=== PATIENT | female | born 1930 | race Caucasian/White ===

== ENCOUNTER 2017-08-23 12:40 | Inpatient (IN) | payer MEDICARE, BC ==
[2017-08-23] MEDS: SOD CHLORIDE 0.9% 1,000 ML IV ×2 (15:13→20:10)
[2017-08-23] MEDS: CEFEPIME 1GM/50 ML (PMX) 50 ML IVPB (15:13)
[2017-08-23 15:35] LABS: ADD MAN DIFF? NO
[2017-08-23 15:38] LABS: WHITE BLOOD COUNT 13.2 10^3/ul (4.8-10.8)
[2017-08-23 15:38] LABS: BASOPHILS % 0.2 % (0.0-2.0); HEMATOCRIT 27.3 % (37.0-47.0); HEMOGLOBIN 9.4 g/dl (12.0-16.0); LYMPHOCYTES # 2.5 10^3/ul (0.8-2.9); LYMPHOCYTES % 19.1 % (15.0-51.0); MEAN CORPUSCULAR HEMOGLOBIN 32.9 pg (29.0-33.0); MEAN CORPUSCULAR HGB CONC 34.4 g/dl (32.0-37.0); MEAN CORPUSCULAR VOLUME 95.5 fl (82.0-101.0); MEAN PLATELET VOLUME 10.7 fl (7.4-10.4); MONOCYTE # 0.2 10^3/ul (0.3-0.9); MONOCYTES % 1.2 % (0.0-11.0); NEUTROPHIL # 10.4 10^3/ul (1.6-7.5); PLATELET COUNT 229 10^3/UL (140-415); RED BLOOD COUNT 2.86 10^6/ul (4.20-5.40); RED CELL DISTRIBUTION WIDTH 13.9 % (11.5-14.5)
[2017-08-23 16:05] LABS: ALANINE AMINOTRANSFERASE 33 IU/L (13-69); ALBUMIN 3.5 g/dl (3.3-4.9); ALBUMIN/GLOBULIN RATIO 1.02; ALKALINE PHOSPHATASE 85 IU/L (42-121); ANION GAP 13 (8-16); ASPARTATE AMINO TRANSFERASE 43 IU/L (15-46); BILIRUBIN,INDIRECT 0.1 mg/dl (0-1.1); BILIRUBIN,TOTAL 0.1 mg/dl (0.2-1.3); BLOOD UREA NITROGEN 25 mg/dl (7-20); CALCIUM 9.1 mg/dl (8.4-10.2); CARBON DIOXIDE 25 mmol/L (21-31); CHLORIDE 98 mmol/L (97-110); CREATININE 1.08 mg/dl (0.44-1.00); GLUCOSE 151 mg/dl (70-220); POTASSIUM 4.2 mmol/L (3.5-5.1); SODIUM 132 mmol/L (135-144); TOTAL PROTEIN 6.9 g/dl (6.1-8.1)
[2017-08-23 16:09] LABS: LACTIC ACID 3.2 mmol/L (0.5-2.0)
[2017-08-23 16:12] LABS: B-TYPE NATRIURETIC PEPTIDE 7040 PG/ML (0-450)
[2017-08-23] MEDS: VANCOMYCIN 1 GM (PMX) 250 ML IVPB (16:33)
[2017-08-23 17:59] LABS: LACTIC ACID 2.6 mmol/L (0.5-2.0)
[2017-08-23] MEDS: SODIUM CHLORIDE 0.9% 1L BAG IV* (19:35)
[2017-08-23 20:06] LABS: LACTIC ACID 1.6 mmol/L (0.5-2.0)
[2017-08-23] MEDS ORDERED: ACETAMINOPHEN 325 MG TAB PO ×2 (20:30→21:00)
[2017-08-23] MEDS ORDERED: VANCOMYCIN IV PER PHARMACY XX (21:00)
[2017-08-23 21:01] LABS: PT RATIO 7.8
[2017-08-23 21:04] LABS: INR > 6.00; PARTIAL THROMBOPLASTIN TIME 168.6 Sec (25.0-35.0); PROTIME > 100.0 Sec (11.9-14.9)
[2017-08-23 21:41] LABS: ADD UMIC NO; UR ASCORBIC ACID NEGATIVE (NEGATIVE); UR BILIRUBIN (Dip) NEGATIVE (NEGATIVE); UR BLOOD (Dip) NEGATIVE (NEGATIVE); UR CLARITY CLEAR (CLEAR); UR COLOR STRAW (YELLOW); UR GLUCOSE (Dip) NEGATIVE (NEGATIVE); UR KETONES (Dip) NEGATIVE (NEGATIVE); UR LEUKOCYTE ESTERASE (Dip) NEGATIVE Leu/ul (NEGATIVE); UR NITRITE (Dip) NEGATIVE (NEGATIVE); UR SPECIFIC GRAVITY (Dip) 1.005 (1.003-1.030); UR TOTAL PROTEIN (Dip) NEGATIVE (NEGATIVE); UR UROBILINOGEN (Dip) NEGATIVE (NEGATIVE)
[2017-08-23] MEDS: morphine 2 MG INJ IV (21:41)
[2017-08-24] MEDS: PHYTONADIONE 10 MG/ML INJ SC (01:00)
[2017-08-24] MEDS: morphine 2 MG INJ IV (01:37)
[2017-08-24] MEDS: ONDANSETRON 4 MG INJ IV ×2 (02:56→10:19)
[2017-08-24] MEDS: morphine 4 MG/ML VIAL IV ×3 (02:56→21:27)
[2017-08-24 06:38] LABS: ADD MAN DIFF? NO
[2017-08-24 06:41] LABS: WHITE BLOOD COUNT 11.3 10^3/ul (4.8-10.8)
[2017-08-24 06:41] LABS: BASOPHILS % 0.4 % (0.0-2.0); HEMATOCRIT 26.9 % (37.0-47.0); HEMOGLOBIN 8.9 g/dl (12.0-16.0); LYMPHOCYTES % 26.5 % (15.0-51.0); MEAN CORPUSCULAR HEMOGLOBIN 32.2 pg (29.0-33.0); MEAN CORPUSCULAR HGB CONC 33.1 g/dl (32.0-37.0); MEAN CORPUSCULAR VOLUME 97.5 fl (82.0-101.0); MEAN PLATELET VOLUME 10.5 fl (7.4-10.4); MONOCYTE # 0.7 10^3/ul (0.3-0.9); MONOCYTES % 6.3 % (0.0-11.0); NEUTROPHIL # 7.5 10^3/ul (1.6-7.5); NEUTROPHILS % 66.4 % (39.0-77.0); PLATELET COUNT 233 10^3/UL (140-415); RED BLOOD COUNT 2.76 10^6/ul (4.20-5.40); RED CELL DISTRIBUTION WIDTH 13.9 % (11.5-14.5)
[2017-08-24 07:10] LABS: LACTIC ACID 0.8 mmol/L (0.5-2.0)
[2017-08-24 07:13] LABS: ALANINE AMINOTRANSFERASE 43 IU/L (13-69); ALBUMIN/GLOBULIN RATIO 1.07; ALKALINE PHOSPHATASE 72 IU/L (42-121); ANION GAP 10 (8-16); ASPARTATE AMINO TRANSFERASE 42 IU/L (15-46); BILIRUBIN,INDIRECT 0.3 mg/dl (0-1.1); BILIRUBIN,TOTAL 0.3 mg/dl (0.2-1.3); BLOOD UREA NITROGEN 21 mg/dl (7-20); CALCIUM 8.2 mg/dl (8.4-10.2); CARBON DIOXIDE 25 mmol/L (21-31); CHLORIDE 107 mmol/L (97-110); CREATININE 0.96 mg/dl (0.44-1.00); GLUCOSE 89 mg/dl (70-220); MAGNESIUM 1.8 mg/dl (1.7-2.5); POTASSIUM 4.3 mmol/L (3.5-5.1); SODIUM 138 mmol/L (135-144); TOTAL PROTEIN 5.8 g/dl (6.1-8.1)
[2017-08-24 07:19] LABS: B-TYPE NATRIURETIC PEPTIDE 7390 PG/ML (0-450)
[2017-08-24 07:44] LABS: IRON 105 ug/dl (35-150)
[2017-08-24 07:47] LABS: % IRON SATURATION 43 % SAT (22-52)
[2017-08-24 08:01] LABS: TOTAL IRON BINDING CAPACITY 247 ug/dl (241-421)
[2017-08-24] MEDS ORDERED: HYDROmorphONE 0.5 MG/0.5 ML SYG IV (08:30)
[2017-08-24 09:46] LABS: INR > 6.00; PROTIME > 100.0 Sec (11.9-14.9); PT RATIO 7.8
[2017-08-24] MEDS: LISINOPRIL 5 MG TAB PO (10:18)
[2017-08-24] MEDS: SERTRALINE 100 MG TAB PO (10:18)
[2017-08-24] MEDS: FLUCONAZOLE 100 MG TAB PO (10:18)
[2017-08-24] MEDS: LEVOTHYROXINE 112 MCG TAB PO (10:19)
[2017-08-24] MEDS: FUROSEMIDE 20 MG INJ IV (10:19)
[2017-08-24] MEDS: PHYTONADIONE 10 MG in DEXTROSE 5% 50 ML IVPB (12:02)
[2017-08-24] MEDS: MAGNESIUM SULFATE 2 GM/50 ML 50 ML IVPB (13:05)
[2017-08-24] MEDS: L ACIDOPHIL/B LACTIS/B LONGUM CAPSULE PO ×2 (13:06→20:41)
[2017-08-24] MEDS ORDERED: CEFEPIME 1GM/50 ML (PMX) 50 ML IVPB (15:00)
[2017-08-24] MEDS ORDERED: VANCOMYCIN 750 MG in DEXTROSE 5% 150 ML IVPB (17:00)
[2017-08-24 17:33] LABS: OCCULT BLOOD STOOL NEGATIVE (NEGATIVE)
[2017-08-25 06:47] LABS: INR 1.25; PROTIME 15.9 Sec (11.9-14.9); PT RATIO 1.2
[2017-08-25 06:48] LABS: PARTIAL THROMBOPLASTIN TIME 36.5 Sec (25.0-35.0)
[2017-08-25 07:21] LABS: C-REACTIVE PROTEIN 1.4 mg/dl (0.0-0.9)
[2017-08-25] MEDS: FUROSEMIDE 20 MG INJ IV (09:23)
[2017-08-25] MEDS: LEVOTHYROXINE 112 MCG TAB PO (09:24)
[2017-08-25] MEDS: L ACIDOPHIL/B LACTIS/B LONGUM CAPSULE PO ×2 (09:24→20:10)
[2017-08-25] MEDS: LISINOPRIL 5 MG TAB PO (09:24)
[2017-08-25] MEDS: FLUCONAZOLE 100 MG TAB PO (09:24)
[2017-08-25] MEDS: SERTRALINE 100 MG TAB PO (09:24)
[2017-08-25 10:39] LABS: ADD MAN DIFF? NO
[2017-08-25 10:45] LABS: BASOPHIL # 0.1 10^3/ul (0.0-0.1); BASOPHILS % 0.7 % (0.0-2.0); EOSINOPHILS % 0.2 % (0.0-7.0); HEMATOCRIT 26.5 % (37.0-47.0); HEMOGLOBIN 9.1 g/dl (12.0-16.0); LYMPHOCYTES # 3.4 10^3/ul (0.8-2.9); LYMPHOCYTES % 27.1 % (15.0-51.0); MEAN CORPUSCULAR HEMOGLOBIN 32.7 pg (29.0-33.0); MEAN CORPUSCULAR HGB CONC 34.3 g/dl (32.0-37.0); MEAN CORPUSCULAR VOLUME 95.3 fl (82.0-101.0); MEAN PLATELET VOLUME 10.2 fl (7.4-10.4); MONOCYTE # 0.8 10^3/ul (0.3-0.9); MONOCYTES % 6.4 % (0.0-11.0); NEUTROPHIL # 8.3 10^3/ul (1.6-7.5); NEUTROPHILS % 65.2 % (39.0-77.0); PLATELET COUNT 210 10^3/UL (140-415); RED BLOOD COUNT 2.78 10^6/ul (4.20-5.40); RED CELL DISTRIBUTION WIDTH 14.1 % (11.5-14.5)
[2017-08-25 10:45] LABS: WHITE BLOOD COUNT 12.7 10^3/ul (4.8-10.8)
[2017-08-25 11:11] LABS: ALANINE AMINOTRANSFERASE 37 IU/L (13-69); ALBUMIN 3.2 g/dl (3.3-4.9); ALBUMIN/GLOBULIN RATIO 1.06; ALKALINE PHOSPHATASE 77 IU/L (42-121); ANION GAP 13 (8-16); ASPARTATE AMINO TRANSFERASE 38 IU/L (15-46); BILIRUBIN,INDIRECT 0.6 mg/dl (0-1.1); BILIRUBIN,TOTAL 0.6 mg/dl (0.2-1.3); BLOOD UREA NITROGEN 22 mg/dl (7-20); CALCIUM 8.4 mg/dl (8.4-10.2); CARBON DIOXIDE 23 mmol/L (21-31); CHLORIDE 103 mmol/L (97-110); CREATININE 0.99 mg/dl (0.44-1.00); GLUCOSE 93 mg/dl (70-220); MAGNESIUM 1.8 mg/dl (1.7-2.5); SODIUM 135 mmol/L (135-144); TOTAL PROTEIN 6.2 g/dl (6.1-8.1)
[2017-08-25 12:01] LABS: ERYTHROCYTE SEDIMENTATION RATE 62 mm/Hr (0-30)
[2017-08-25] MEDS ORDERED: BETHANECHOL 25 MG TAB PO (16:30)
[2017-08-25] MEDS: WARFARIN 2 MG TAB PO (17:53)
[2017-08-25] MEDS: HYDROCODONE/APAP (7.5/325) TAB PO (20:14)
[2017-08-26] MEDS: TEMAZEPAM 15 MG CAP PO (01:36)
[2017-08-26] MEDS: FUROSEMIDE 20 MG INJ IV (08:40)
[2017-08-26] MEDS: SERTRALINE 100 MG TAB PO (08:41)
[2017-08-26] MEDS: L ACIDOPHIL/B LACTIS/B LONGUM CAPSULE PO ×3 (08:41→20:44)
[2017-08-26] MEDS: FLUCONAZOLE 100 MG TAB PO (08:41)
[2017-08-26] MEDS: LISINOPRIL 5 MG TAB PO (08:41)
[2017-08-26] MEDS: LEVOTHYROXINE 112 MCG TAB PO (08:41)
[2017-08-26] MEDS: WARFARIN 2 MG TAB PO (17:45)
[2017-08-26] MEDS: HYDROCODONE/APAP (7.5/325) TAB PO (20:45)
[2017-08-26 22:37] LABS: ADD MAN DIFF? NO; BASOPHIL # 0.1 10^3/ul (0.0-0.1); BASOPHILS % 0.5 % (0.0-2.0); EOSINOPHILS # 0.1 10^3/ul (0.0-0.5); EOSINOPHILS % 0.8 % (0.0-7.0); HEMATOCRIT 27.9 % (37.0-47.0); HEMOGLOBIN 9.7 g/dl (12.0-16.0); LYMPHOCYTES % 31.7 % (15.0-51.0); MEAN CORPUSCULAR HEMOGLOBIN 33.4 pg (29.0-33.0); MEAN CORPUSCULAR HGB CONC 34.8 g/dl (32.0-37.0); MEAN CORPUSCULAR VOLUME 96.2 fl (82.0-101.0); MEAN PLATELET VOLUME 10.1 fl (7.4-10.4); MONOCYTES % 6.6 % (0.0-11.0); NEUTROPHIL # 9.4 10^3/ul (1.6-7.5); NEUTROPHILS % 59.9 % (39.0-77.0); PLATELET COUNT 219 10^3/UL (140-415); RED CELL DISTRIBUTION WIDTH 13.9 % (11.5-14.5)
[2017-08-26 22:37] LABS: WHITE BLOOD COUNT 15.7 10^3/ul (4.8-10.8)
[2017-08-26 23:05] LABS: INR 1.23; PROTIME 15.7 Sec (11.9-14.9); PT RATIO 1.2
[2017-08-27 06:33] LABS: ADD MAN DIFF? NO
[2017-08-27 06:35] LABS: BASOPHIL # 0.1 10^3/ul (0.0-0.1); BASOPHILS % 0.7 % (0.0-2.0); EOSINOPHILS # 0.2 10^3/ul (0.0-0.5); EOSINOPHILS % 1.2 % (0.0-7.0); HEMATOCRIT 25.1 % (37.0-47.0); HEMOGLOBIN 8.6 g/dl (12.0-16.0); LYMPHOCYTES # 3.3 10^3/ul (0.8-2.9); LYMPHOCYTES % 26.7 % (15.0-51.0); MEAN CORPUSCULAR HEMOGLOBIN 32.6 pg (29.0-33.0); MEAN CORPUSCULAR HGB CONC 34.3 g/dl (32.0-37.0); MEAN CORPUSCULAR VOLUME 95.1 fl (82.0-101.0); MEAN PLATELET VOLUME 10.5 fl (7.4-10.4); MONOCYTE # 0.8 10^3/ul (0.3-0.9); MONOCYTES % 6.9 % (0.0-11.0); NEUTROPHIL # 7.8 10^3/ul (1.6-7.5); PLATELET COUNT 196 10^3/UL (140-415); RED BLOOD COUNT 2.64 10^6/ul (4.20-5.40)
[2017-08-27 06:35] LABS: WHITE BLOOD COUNT 12.2 10^3/ul (4.8-10.8)
[2017-08-27 07:01] LABS: INR 1.28; PROTIME 16.2 Sec (11.9-14.9); PT RATIO 1.3
[2017-08-27] MEDS: LISINOPRIL 5 MG TAB PO (08:44)
[2017-08-27] MEDS: FUROSEMIDE 20 MG INJ IV (08:45)
[2017-08-27] MEDS: LEVOTHYROXINE 112 MCG TAB PO (08:45)
[2017-08-27] MEDS: L ACIDOPHIL/B LACTIS/B LONGUM CAPSULE PO (08:45)
[2017-08-27] MEDS: SERTRALINE 50 MG TAB PO (08:45)
[2017-08-27] MEDS: FLUCONAZOLE 100 MG TAB PO (08:45)
== END 2017-08-27 12:05 | disposition home or self-care (01) | DRG 291 ==
LOC: E/R 12:40 → PP2 20:11
DX: I13.0 Hypertensive heart and chronic kidney disease with heart failure and stage 1 through stage 4 chronic kidney disease, or unspecified chronic kidney disease (principal); I50.33 Acute on chronic diastolic (congestive) heart failure; E87.2 Acidosis; D68.8 Other specified coagulation defects; M32.9 Systemic lupus erythematosus, unspecified; I05.2 Rheumatic mitral stenosis with insufficiency; I48.0 Paroxysmal atrial fibrillation; B37.9 Candidiasis, unspecified; F32.9 Major depressive disorder, single episode, unspecified; E03.9 Hypothyroidism, unspecified; I35.0 Nonrheumatic aortic (valve) stenosis; D72.829 Elevated white blood cell count, unspecified; D64.9 Anemia, unspecified; F39 Unspecified mood [affective] disorder; F17.210 Nicotine dependence, cigarettes, uncomplicated; N18.9 Chronic kidney disease, unspecified; R60.0 Localized edema; R33.9 Retention of urine, unspecified; R19.7 Diarrhea, unspecified; Z87.01 Personal history of pneumonia (recurrent); Z87.440 Personal history of urinary (tract) infections; Z95.0 Presence of cardiac pacemaker; Z95.828 Presence of other vascular implants and grafts; Z79.01 Long term (current) use of anticoagulants
CPT/HCPCS: 71045; 73700; 80053; 81003; 82270; 82607; 83540; 83605; 83735; 83880; 84443; 85025; 85610; 85651; 85730; 86140; 87040; 87086; 87400; 93005; 93306; 93970; 96374; 96375; 99285-25; J1940

== ENCOUNTER 2018-10-09 09:05 | Inpatient (IN) | payer MEDICARE, BC ==
[2018-10-09] MEDS: ONDANSETRON 4 MG INJ IV (10:07)
[2018-10-09] MEDS: SOD CHLORIDE 0.9% 1,000 ML IV (10:07)
[2018-10-09 10:15] LABS: ADD MAN DIFF? NO
[2018-10-09 10:17] LABS: HEMATOCRIT 37.8 % (37.0-47.0); RED BLOOD COUNT 3.76 10^6/ul (4.20-5.40)
[2018-10-09 10:18] LABS: BASOPHILS % 0.2 % (0.0-2.0); LYMPHOCYTES # 3.2 10^3/ul (0.8-2.9); LYMPHOCYTES % 21.5 % (15.0-51.0); MEAN CORPUSCULAR HEMOGLOBIN 31.9 pg (29.0-33.0); MEAN CORPUSCULAR HGB CONC 31.7 g/dl (32.0-37.0); MEAN CORPUSCULAR VOLUME 100.5 fl (82.0-101.0); MEAN PLATELET VOLUME 11.3 fl (7.4-10.4); MONOCYTE # 0.4 10^3/ul (0.3-0.9); MONOCYTES % 2.6 % (0.0-11.0); NEUTROPHIL # 11.3 10^3/ul (1.6-7.5); NEUTROPHILS % 75.2 % (39.0-77.0); PLATELET COUNT 182 10^3/UL (140-415); RED CELL DISTRIBUTION WIDTH 14.1 % (11.5-14.5)
[2018-10-09] MEDS: ACETAMINOPHEN 325 MG TAB PO ×3 (10:20→20:39)
[2018-10-09 10:35] LABS: ALANINE AMINOTRANSFERASE 25 IU/L (13-69); ALBUMIN 3.9 g/dl (3.3-4.9); ALBUMIN/GLOBULIN RATIO 1.14; ALKALINE PHOSPHATASE 110 IU/L (42-121); ANION GAP 7 (5-13); ASPARTATE AMINO TRANSFERASE 44 IU/L (15-46); BILIRUBIN,INDIRECT 0.8 mg/dl (0-1.1); BILIRUBIN,TOTAL 0.8 mg/dl (0.2-1.3); BLOOD UREA NITROGEN 19 mg/dl (7-20); CALCIUM 9.2 mg/dl (8.4-10.2); CARBON DIOXIDE 27 mmol/L (21-31); CHLORIDE 105 mmol/L (97-110); CREATININE 0.85 mg/dl (0.44-1.00); GLUCOSE 115 mg/dl (70-220); LIPASE 22 U/L (23-300); POTASSIUM 4.5 mmol/L (3.5-5.1); SODIUM 139 mmol/L (135-144); TOTAL PROTEIN 7.3 g/dl (6.1-8.1)
[2018-10-09 10:47] LABS: TROPONIN-I 0.019 ng/ml (0.000-0.120)
[2018-10-09] MEDS: FUROSEMIDE 40 MG INJ IV (11:00)
[2018-10-09 11:10] LABS: B-TYPE NATRIURETIC PEPTIDE 5720 PG/ML (0-450)
[2018-10-09 13:44] LABS: INR 1.95; PROTIME 22.3 Sec (11.9-14.9); PT RATIO 1.7
[2018-10-09 13:45] LABS: PARTIAL THROMBOPLASTIN TIME 51.7 Sec (23.0-35.0)
[2018-10-09] MEDS: PIPER-TAZO 3.375 GM IV (PMX) 100 ML IVPB ×3 (14:02→22:07)
[2018-10-09 17:08] LABS: CREATINE KINASE 36 IU/L (23-200)
[2018-10-09 17:20] LABS: CK INDEX 1.8; CK-MB 0.65 ng/ml (0.0-2.4); TROPONIN-I 0.022 ng/ml (0.000-0.120)
[2018-10-09] MEDS: NICOTINE (14 MG/24 HR) PATCH TRANSDERM (17:30)
[2018-10-09] MEDS ORDERED: FUROSEMIDE 20 MG INJ IV (18:00)
[2018-10-09] MEDS: WARFARIN 2 MG TAB PO (18:30)
[2018-10-09] MEDS: HYDROCODONE/APAP (5/325) TAB PO (18:31)
[2018-10-09] MEDS: FUROSEMIDE 20 MG INJ IV (19:06)
[2018-10-09] MEDS: ATORVASTATIN 10 MG TAB PO (20:40)
[2018-10-10 01:44] LABS: ADD UMIC YES; UR ASCORBIC ACID NEGATIVE (NEGATIVE); UR BILIRUBIN (Dip) NEGATIVE (NEGATIVE); UR BLOOD (Dip) 1+ mg/dL (NEGATIVE); UR CLARITY CLEAR (CLEAR); UR COLOR YELLOW (YELLOW); UR GLUCOSE (Dip) NEGATIVE (NEGATIVE); UR KETONES (Dip) NEGATIVE (NEGATIVE); UR LEUKOCYTE ESTERASE (Dip) NEGATIVE Leu/ul (NEGATIVE); UR NITRITE (Dip) NEGATIVE (NEGATIVE); UR RBC 8 /HPF (0-5); UR TOTAL PROTEIN (Dip) NEGATIVE (NEGATIVE); UR UROBILINOGEN (Dip) NEGATIVE (NEGATIVE); UR WBC 1 /HPF (0-5)
[2018-10-10] MEDS: FUROSEMIDE 20 MG INJ IV (05:21)
[2018-10-10] MEDS: PIPER-TAZO 3.375 GM IV (PMX) 100 ML IVPB ×3 (05:21→21:21)
[2018-10-10] MEDS: LEVOTHYROXINE 112 MCG TAB PO (06:44)
[2018-10-10 06:47] LABS: ADD MAN DIFF? NO
[2018-10-10 06:50] LABS: BASOPHILS % 0.4 % (0.0-2.0); EOSINOPHILS # 0.2 10^3/ul (0.0-0.5); EOSINOPHILS % 2.1 % (0.0-7.0); HEMATOCRIT 35.3 % (37.0-47.0); HEMOGLOBIN 11.2 g/dl (12.0-16.0); LYMPHOCYTES # 2.6 10^3/ul (0.8-2.9); LYMPHOCYTES % 26.7 % (15.0-51.0); MEAN CORPUSCULAR HEMOGLOBIN 32.4 pg (29.0-33.0); MEAN CORPUSCULAR HGB CONC 31.7 g/dl (32.0-37.0); MEAN PLATELET VOLUME 11.1 fl (7.4-10.4); MONOCYTE # 0.4 10^3/ul (0.3-0.9); MONOCYTES % 3.8 % (0.0-11.0); NEUTROPHIL # 6.5 10^3/ul (1.6-7.5); NEUTROPHILS % 66.5 % (39.0-77.0); PLATELET COUNT 162 10^3/UL (140-415); RED BLOOD COUNT 3.46 10^6/ul (4.20-5.40); RED CELL DISTRIBUTION WIDTH 14.4 % (11.5-14.5)
[2018-10-10 06:50] LABS: WHITE BLOOD COUNT 9.8 10^3/ul (4.8-10.8)
[2018-10-10 07:24] LABS: ALANINE AMINOTRANSFERASE 53 IU/L (13-69); ALBUMIN 3.3 g/dl (3.3-4.9); ALBUMIN/GLOBULIN RATIO 1.03; ALKALINE PHOSPHATASE 99 IU/L (42-121); ANION GAP 8 (5-13); ASPARTATE AMINO TRANSFERASE 56 IU/L (15-46); B-TYPE NATRIURETIC PEPTIDE 7430 PG/ML (0-450); BILIRUBIN,INDIRECT 0.7 mg/dl (0-1.1); BILIRUBIN,TOTAL 0.7 mg/dl (0.2-1.3); BLOOD UREA NITROGEN 21 mg/dl (7-20); CALCIUM 8.1 mg/dl (8.4-10.2); CARBON DIOXIDE 25 mmol/L (21-31); CHLORIDE 104 mmol/L (97-110); GLUCOSE 91 mg/dl (70-220); MAGNESIUM 1.8 mg/dl (1.7-2.5); POTASSIUM 3.8 mmol/L (3.5-5.1); SODIUM 137 mmol/L (135-144); TOTAL PROTEIN 6.5 g/dl (6.1-8.1)
[2018-10-10] MEDS: NICOTINE (14 MG/24 HR) PATCH TRANSDERM (08:38)
[2018-10-10] MEDS: SERTRALINE 100 MG TAB PO (08:38)
[2018-10-10] MEDS: MAGNESIUM SULFATE 2 GM/50 ML 50 ML IVPB (08:39)
[2018-10-10] MEDS: LISINOPRIL 5 MG TAB PO (08:40)
[2018-10-10] MEDS: POLYETHYLENE GLYCOL 17 GM PACKET PO ×2 (08:44→21:22)
[2018-10-10] MEDS: ACETAMINOPHEN 325 MG TAB PO (14:22)
[2018-10-10] MEDS: WARFARIN 2 MG TAB PO (17:07)
[2018-10-10] MEDS: ATORVASTATIN 10 MG TAB PO (21:00)
[2018-10-10] MEDS: ZOLPIDEM 5 MG TAB PO (21:30)
[2018-10-11] MEDS: HYDROCODONE/APAP (5/325) TAB PO (02:34)
[2018-10-11] MEDS: PIPER-TAZO 3.375 GM IV (PMX) 100 ML IVPB ×3 (06:13→20:35)
[2018-10-11] MEDS: LEVOTHYROXINE 112 MCG TAB PO (06:14)
[2018-10-11 06:50] LABS: HEMATOCRIT 36.9 % (37.0-47.0); HEMOGLOBIN 11.8 g/dl (12.0-16.0); MEAN CORPUSCULAR HEMOGLOBIN 32.6 pg (29.0-33.0); MEAN CORPUSCULAR VOLUME 101.9 fl (82.0-101.0); MEAN PLATELET VOLUME 10.9 fl (7.4-10.4); PLATELET COUNT 179 10^3/UL (140-415); RED BLOOD COUNT 3.62 10^6/ul (4.20-5.40)
[2018-10-11 06:51] LABS: ADD MAN DIFF? YES; POSITIVE DIFF @See below
[2018-10-11 07:05] LABS: ANION GAP 6 (5-13); BLOOD UREA NITROGEN 18 mg/dl (7-20); CALCIUM 8.9 mg/dl (8.4-10.2); CARBON DIOXIDE 29 mmol/L (21-31); CHLORIDE 106 mmol/L (97-110); CREATININE 0.82 mg/dl (0.44-1.00); GLUCOSE 92 mg/dl (70-220); POTASSIUM 3.7 mmol/L (3.5-5.1); SODIUM 141 mmol/L (135-144)
[2018-10-11 07:11] LABS: INR 2.11; PROTIME 23.7 Sec (11.9-14.9); PT RATIO 1.9
[2018-10-11 07:15] LABS: B-TYPE NATRIURETIC PEPTIDE 4540 PG/ML (0-450)
[2018-10-11 07:38] LABS: ANISOCYTOSIS 1+ (0-0); BAND NEUTROPHILS #M 0.8 10^3/ul (0.0-0.6); BAND NEUTROPHILS % (M) 9 % (0-4); BASOPHILS % (M) 1 % (0-2); EOSINOPHILS % (M) 4 % (0-7); GIANT THROMBO% (M) 1 % (0-0); LYMPHOCYTES #M 2.2 10^3/ul (0.8-2.9); LYMPHOCYTES % (M) 25 % (15-51); MONOCYTE #M 0.9 10^3/ul (0.3-0.9); MONOCYTES % (M) 10 % (0-11); MYELOCYTES % (M) 1 % (0-0); OVALOCYTES 1+ (0-0); PLATELET ESTIMATE NORMAL; REACTIVE LYMPHOCYTES #M 0.4 10^3/ul (0.0-0.0); REACTIVE LYMPHOCYTES% (M) 5 % (0-0); SEG NEUT #M 4.1 10^3/ul (1.6-7.5); SEGMENTED NEUTROPHILS (M) % 45 % (39-77); SMUDGE%M 32 % (0-0)
[2018-10-11] MEDS: SERTRALINE 100 MG TAB PO (09:07)
[2018-10-11] MEDS: NICOTINE (14 MG/24 HR) PATCH TRANSDERM (09:08)
[2018-10-11] MEDS: LISINOPRIL 5 MG TAB PO (09:08)
[2018-10-11] MEDS: FUROSEMIDE 20 MG TAB PO ×2 (09:08→17:30)
[2018-10-11] MEDS: WARFARIN 2 MG TAB PO (17:30)
[2018-10-11] MEDS: ONDANSETRON 4 MG INJ IV (17:32)
[2018-10-11] MEDS: ATORVASTATIN 10 MG TAB PO (20:36)
[2018-10-12] MEDS: PIPER-TAZO 3.375 GM IV (PMX) 100 ML IVPB ×2 (05:35→13:49)
[2018-10-12] MEDS: LEVOTHYROXINE 112 MCG TAB PO (05:35)
[2018-10-12] MEDS: FUROSEMIDE 20 MG TAB PO (05:35)
[2018-10-12 06:21] LABS: INR 2.26
[2018-10-12 06:36] LABS: ALANINE AMINOTRANSFERASE 36 IU/L (13-69); ALBUMIN 3.3 g/dl (3.3-4.9); ALBUMIN/GLOBULIN RATIO 1.06; ALKALINE PHOSPHATASE 87 IU/L (42-121); ANION GAP 7 (5-13); ASPARTATE AMINO TRANSFERASE 28 IU/L (15-46); BILIRUBIN,INDIRECT 0.2 mg/dl (0-1.1); BILIRUBIN,TOTAL 0.2 mg/dl (0.2-1.3); BLOOD UREA NITROGEN 16 mg/dl (7-20); CALCIUM 8.7 mg/dl (8.4-10.2); CARBON DIOXIDE 29 mmol/L (21-31); CHLORIDE 105 mmol/L (97-110); CREATININE 0.97 mg/dl (0.44-1.00); GLUCOSE 87 mg/dl (70-220); MAGNESIUM 1.8 mg/dl (1.7-2.5); POTASSIUM 3.4 mmol/L (3.5-5.1); SODIUM 141 mmol/L (135-144); TOTAL PROTEIN 6.4 g/dl (6.1-8.1)
[2018-10-12 06:37] LABS: B-TYPE NATRIURETIC PEPTIDE 4660 PG/ML (0-450)
[2018-10-12] MEDS: SERTRALINE 100 MG TAB PO (08:39)
[2018-10-12] MEDS: POLYETHYLENE GLYCOL 17 GM PACKET PO (08:39)
[2018-10-12] MEDS: LISINOPRIL 5 MG TAB PO (08:40)
[2018-10-12] MEDS: NICOTINE (14 MG/24 HR) PATCH TRANSDERM (08:42)
== END 2018-10-12 15:33 | disposition home or self-care (01) | DRG 871 ==
LOC: E/R 09:05 → TEL 10-10 16:46
DX: A41.9 Sepsis, unspecified organism (principal); I50.33 Acute on chronic diastolic (congestive) heart failure; Z68.1 Body mass index [BMI] 19.9 or less, adult; I11.0 Hypertensive heart disease with heart failure; E86.0 Dehydration; M32.9 Systemic lupus erythematosus, unspecified; I48.0 Paroxysmal atrial fibrillation; F17.210 Nicotine dependence, cigarettes, uncomplicated; E03.9 Hypothyroidism, unspecified; G47.00 Insomnia, unspecified; F32.9 Major depressive disorder, single episode, unspecified; I73.9 Peripheral vascular disease, unspecified; I34.0 Nonrheumatic mitral (valve) insufficiency; I25.10 Atherosclerotic heart disease of native coronary artery without angina pectoris; M47.26 Other spondylosis with radiculopathy, lumbar region; Z79.01 Long term (current) use of anticoagulants; Z95.0 Presence of cardiac pacemaker
CPT/HCPCS: 36415; 71045; 80048; 80053; 81001; 82550; 82553; 83690; 83735; 83880; 84484; 85025; 85610; 85730; 87086; 87400; 93005; 93306; 96374; 97161; 99285-25